=== PATIENT | female | born 1955 | race Caucasian/White ===

== ENCOUNTER 2022-06-15 08:44 | Outpatient (CLI) | payer MEDICARE, OTHER, SELFPAY ==
--- NOTE | 2022-06-15 08:51 | MR_ITS ---
WS: [id number] MRI BRAIN WITH HIGH-RESOLUTION IMAGING THROUGH THE INTERNAL AUDITORY CANALS WITHOUT AND WITH CONTRAST HISTORY: SENSORINEURAL HEARING Loss, bilateral COMPARISON: None available. TECHNIQUE: Multiplanar, multisequence imaging is performed through the brain. Additional 3 mm imaging performed in multiple planes through the internal auditory canal. Postcontrast imaging with 17 ml's of ProHance. No acute intracranial hemorrhage, midline shift, edema or mass effect. Mild bilateral small vessel ischemic disease. No prior infarct. Mild atrophy. No hemorrhage. Ventricles and extra-axial spaces are normal. No inferior displacement of cerebellar tonsils. Clivus and pituitary gland are normal. Internal and external auditory canals: There is some very mild enhancement involving the 7th and 8th cranial nerve complexes through the RIGHT internal auditory canal. This is slightly greater involveme nt of the 8th cranial nerve. No enlargement and no focal mass. This enhancement is very subtle. Cerebellopontine angles: No mass at the cerebellopontine angles. Paranasal sinuses: Normal. Mastoid air cells: Normal. Calvarium and scalp: Normal. Visualized [place] and dural venous sinuses demonstrate no abnormality. MR/MR iac's wo/w con* [id number] IMPRESSION: 1. No mass along the internal auditory canals or at the cerebellopontine angle s. 2. There is some very minimal, subtle enhancement involving the RIGHT seventh and the 8th cranial nerve complex through the internal auditory canal. This is very subtle and nonmasslike. Consider infectious and inflammatory etiologies. 3. Otherwise no acute infarct. Mild small vessel ischemic disease. No mass.
== END 2022-06-15 08:45 | disposition home or self-care (01) ==
PROVIDERS: Family Provider Family Medicine; PCP Family Medicine; Visit Provider Specialist
DX: H90.3 Sensorineural hearing loss, bilateral (principal)
CPT/HCPCS: 70553

== ENCOUNTER → 2024-11-07 09:53 | Outpatient (BNVA) | payer MEDICARE, OTHER, SELFPAY | PROVIDERS: Family Provider Family Medicine; PCP Family Medicine; Visit Provider Podiatrist Foot & Ankle Surgery | DX: M25.571 Pain in right ankle and joints of right foot (principal); M76.821 Posterior tibial tendinitis, right leg | CPT/HCPCS: 73610; 99203 ==

== ENCOUNTER 2024-12-18 11:26 | Outpatient (CLI) | payer MEDICARE, OTHER, SELFPAY | END 2024-12-18 11:27 | disposition home or self-care (01) | LOC: SPT 11:26 | PROVIDERS: Family Provider Family Medicine; PCP Family Medicine; Visit Provider Podiatrist Foot & Ankle Surgery | DX: Z46.89 Encounter for fitting and adjustment of other specified devices (principal); M76.829 Posterior tibial tendinitis, unspecified leg | CPT/HCPCS: 97760; L3030 ==

== ENCOUNTER → 2025-01-12 14:02 | Outpatient (BNVA) | payer MEDICARE, OTHER, SELFPAY | PROVIDERS: Family Provider Family Medicine; PCP Family Medicine; Visit Provider Podiatrist Foot & Ankle Surgery | DX: M76.821 Posterior tibial tendinitis, right leg (principal) | CPT/HCPCS: 99213 ==